=== PATIENT | female | born 1940 | race American Indian/Alaskan Native ===

== ENCOUNTER → 2020-03-04 13:05 | Outpatient (ROUT) | payer MEDICARE, SELFPAY ==
[2020-03-06 23:07] LABS: COVID19 Sendout Not Detected (Not Detected)
== END ==
PROVIDERS: Visit Provider Internal Medicine
DX: Z11.59 Encounter for screening for other viral diseases (principal)
CPT/HCPCS: 87635

== ENCOUNTER → 2020-03-29 14:54 | Outpatient (ROUT) | payer MEDICARE, MEDICAID, SELFPAY | PROVIDERS: Visit Provider Internal Medicine | DX: R35.0 Frequency of micturition (principal) | CPT/HCPCS: 87077; 87086; 87186 ==

== ENCOUNTER → 2020-04-17 10:24 | Outpatient (CLI) | payer MEDICARE, MEDICAID, SELFPAY ==
--- NOTE | 2020-04-17 10:32 | DI.RAD.S_ITS ---
PROCEDURE: XR SHOULDER RT MIN 2V INDICATIONS: FALL TRAUMA TECHNIQUE: 2 views of the shoulder were acquired. COMPARISON: [facility], [place], XR SHOULDER LT MIN 2V, 04/17/2020, 10:27. FINDINGS: Bones: No fracture. 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 The prosthetic humeral head is superiorly subluxed. No suspicious bony lesions. Visualized ribs appear intact. Soft tissues: No suspicious soft tissue calcifications. There is subcutaneous gas in the lateral aspect of the chest wall. IMPRESSION: 1. No fractures. 2. Right shoulder arthroplasty. The prosthetic humeral head is superiorly subluxed. Comparison to prior exam will be available to assess chronicity of the finding. Dictated by: Lizz Ocampo M.D. on 04/17/2020 at 15:38 Approved by: Lizz Ocampo M.D. on 04/17/2020 at 15:40
--- NOTE | 2020-04-17 10:32 | DI.RAD.S_ITS ---
PROCEDURE: XR SHOULDER LT MIN 2V INDICATIONS: FALL TRAUMA TECHNIQUE: To views of the shoulder were acquired. COMPARISON: None. 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 Severe glenohumeral and acromioclavicular joint degeneration. There is superior subluxation of humeral head likely secondary to rotator cuff tendinopathy. Soft tissues: No suspicious soft tissue calcifications. IMPRESSION: 1. Because of severe of the proximal humerus, subtle fracture would be difficult to exclude. If clinical suspicion is high, further evaluation with CT or MRI is suggested. 2. Severe glenohumeral and acromioclavicular joint degeneration. 3. Superior migration of the humeral head is most likely related to with the cuff tendinopathy. Dictated by: Lizz Ocampo M.D. on 04/17/2020 at 15:40 Approved by: Lizz Ocampo M.D. on 04/17/2020 at 15:43
== END ==
PROVIDERS: Referring Provider Nurse Practitioner; Visit Provider Nurse Practitioner
DX: T84.028A Dislocation of other internal joint prosthesis, initial encounter (principal); R29.6 Repeated falls; S49.91XA Unspecified injury of right shoulder and upper arm, initial encounter; M19.012 Primary osteoarthritis, left shoulder; M85.822 Other specified disorders of bone density and structure, left upper arm; W19.XXXA Unspecified fall, initial encounter; Z96.611 Presence of right artificial shoulder joint
CPT/HCPCS: 73030

== ENCOUNTER → 2020-05-01 13:09 | Outpatient (CLI) | payer MEDICARE, MEDICAID, SELFPAY ==
--- NOTE | 2020-05-01 | DI.RAD.S_ITS ---
PROCEDURE: XR CHEST 2V INDICATIONS: Pneumonia, unspecified organism TECHNIQUE: 2 views of the chest were acquired. COMPARISON: None. FINDINGS: Surgical changes and devices: Prior right total shoulder arthroplasty, no evidence of device loosening or disruption. The left shoulder shows severe degenerative change and likelihood of full-thickness supraspinatus rotator cuff tear given superior subluxation of the MR a lead against the undersurface of the acromion.. Lungs and pleura: Lungs are abnormal with a patchy pneumonia pattern right upper lobe and to a smaller degree left upper lobe. Mild patchy pneumonia suspected right lung base.. No pleural effusions or pneumothorax. Mediastinum: Mediastinal contours are normal. Heart size is normal. Bones and chest wall: No suspicious bony abnormalities. Soft tissues appear unremarkable. 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 Dictated by: Jean Whiteside M.D. on 05/01/2020 at 14:34 Approved by: Jean Whiteside M.D. on 05/01/2020 at 14:36
--- NOTE | 2020-05-01 | DI.RAD.S_ITS ---
PROCEDURE: XR HUMERUS RT 2V INDICATIONS: pain no recent injury TECHNIQUE: 2 views of the humerus were acquired. COMPARISON: [facility], CR, XR SHOULDER RT MIN 2V, 04/17/2020, 10:27. [facility], [place], XR HUMERUS LT 2V, 05/01/2020, 13:13. FINDINGS: Bones: No fractures or dislocations. Prior right total shoulder arthroplasty. No suspicious bony lesions. Soft tissues: No suspicious soft tissue calcifications. IMPRESSION: Normal alignment after right total shoulder arthroplasty. No casino change attendant time, source of new pain is not identified. Dictated by: Jean Whiteside M.D. on 05/01/2020 at 14:33 Approved by: Jean Whiteside M.D. on 05/01/2020 at 14:34
--- NOTE | 2020-05-01 | DI.RAD.S_ITS ---
PROCEDURE: XR HUMERUS LT 2V INDICATIONS: pain no recent injury TECHNIQUE: To views of the humerus were acquired. COMPARISON: [facility], [place], XR SHOULDER LT MIN 2V, 04/17/2020, 10:27. [facility], [place], XR HUMERUS RT 2V, 05/01/2020, 13:25. FINDINGS: Bones: There is osteopenia over the shoulder, and severe degenerative change including [id number] articulation at the glenohumeral joint and also superior subluxation of the humeral head cephalad against the undersurface of the acromion indicating presence of full-thickness retracted supraspinatus rotator cuff tear. No suspicious bony lesions. Soft tissues: No suspicious soft tissue calcifications. IMPRESSION: Severe degenerative changes as discussed, full-thickness supraspinatus retracted rotator cuff tear allows apposition of the humeral head against the undersurface of the acromion. Dictated by: Jean Whiteside M.D. on 05/01/2020 at 14:18 Approved by: Jean Whiteside M.D. on 05/01/2020 at 14:20
== END ==
PROVIDERS: PCP Nurse Practitioner; Referring Provider Nurse Practitioner; Visit Provider Nurse Practitioner
DX: J18.9 Pneumonia, unspecified organism (principal); S46.012A Strain of muscle(s) and tendon(s) of the rotator cuff of left shoulder, initial encounter; M85.812 Other specified disorders of bone density and structure, left shoulder; M19.012 Primary osteoarthritis, left shoulder; R53.1 Weakness; W19.XXXA Unspecified fall, initial encounter; Z96.611 Presence of right artificial shoulder joint
CPT/HCPCS: 71046; 73060

== ENCOUNTER → 2020-09-13 19:22 | Outpatient (ROUT) | payer MEDICARE, MEDICAID, SELFPAY ==
[2020-09-13 19:32] LABS: Appearance Urine UA SL CLOUDY; Bilirubin Urine UA NEGATIVE (NEGATIVE); Color Urine UA YELLOW; Glucose Urine UA NEGATIVE (Negative); Ketones Urine UA NEGATIVE (NEGATIVE); Leukocyte Esterase Urine UA 3+ (NEGATIVE); Nitrite Urine UA POSITIVE (Negative); Occult Blood Urine UA 1+ (Negative); Protein Urine UA NEGATIVE (Negative); Specific Gravity Urine UA 1.015 (1.000-1.035); Urobilinogen Urine UA 0.2 E.U./dL (0.2)
[2020-09-13 19:33] LABS: pH Urine UA 6.5 (4.5-8.0)
[2020-09-13 19:41] LABS: Bacteria Urine Many (>30); Culture Indicated Urine Specimen Cultured; RBC Urine 1-5/HPF (0-5/HPF); Squamous Epithelial Cell Urine 0-1 /HPF (0-5/HPF); WBC Urine 5-10/HPF (0-5/HPF)
== END ==
PROVIDERS: PCP Nurse Practitioner; Visit Provider Nurse Practitioner
DX: R35.0 Frequency of micturition (principal)
CPT/HCPCS: 81001; 87077; 87086; 87186